=== PATIENT | female | born 1955 | race Two or more races ===

== ENCOUNTER 2018-04-12 22:01 | Emergency (ER) | payer OTHER ==
[~2018-04-12] VITALS: Ht 167.6 cm; Wt 88.5 kg
[2018-04-12 22:06] VITALS: BP 167/100
--- NOTE | 2018-04-12 22:08 | NUR ---
Pt came to ER complaining of bilateral lower leg cellulitis for the past 3 weeks that has not been getting better. Pt states she went to [facility] 5 days ago and was prescribed bactrim and the cellulitis has not been getting better. Pt denies pain and fever. Respirations even and unlabored. NAD noted. Pt put on the monitor and pending eval from ER .
--- NOTE | 2018-04-12 23:02 | NUR ---
DANNY Buckner at bedside for Eval.
--- NOTE | 2018-04-12 23:19 | NUR ---
Pt was seen by MD and [facility], shortly after pt eloped. MD notified.
--- NOTE | 2018-04-12 23:23 | NUR ---
PT ELOPED/LEFT BEFORE REC'ING ACI. PT WENT TO THE LOBBY AND CALLED THE NURSING [employer], ROSA, WHO IS NOW SPEAKING TO THE PT.
== END 2018-04-12 23:21 | disposition left against medical advice (07) ==
LOC: ER 22:02
DX: R60.0 Localized edema (principal); F41.9 Anxiety disorder, unspecified; Z88.0 Allergy status to penicillin; Z88.1 Allergy status to other antibiotic agents; Z59.0 Homelessness
CPT/HCPCS: 99281; A4606; Z7610; Z7502